=== PATIENT | male | born 1980 | race Caucasian/White ===

== ENCOUNTER 2022-03-15 14:50 | Emergency (ER) | payer MEDICAID, OTHER ==
[2022-03-15 15:28] LABS: #Basophils 0.1 thou/uL (0.0-0.2); #Eosinphils 0.2 thou/uL (0.0-0.7); #Lymphocytes 2.5 thou/uL (1.20-3.40); #Monocytes 0.5 thou/uL (0.11-0.59); #Neutrophils 4.4 thou/uL (1.40-6.50); %Basophils 1.1 % (0.0-1.0); %Eosinophils 2.6 % (0.0-10.0); %Lymphocytes 33.1 % (21.0-51.0); %Neutrophils 57.2 % (42.0-75.0); Hemoglobin 13.9 g/dL (14.0-18.0); Mean Corpuscular HGB CONC 33.2 g/dL (32.0-36.0); Mean Corpuscular Volume 87.4 fL (78.0-98.0); Platelet Count 327 thou/uL (130-400); RBC Distribution Width 12.2 % (11.5-14.5); Red Blood Cell (RBC) Count 4.78 mill/uL (4.70-6.10); White Blood Cell (WBC) Count 7.7 thou/uL (4.8-10.8)
[2022-03-15 16:05] LABS: ALT (SGPT) 28 U/L (8-55); AST (SGOT) 21 U/L (5-34); Albumin 4.6 g/dL (3.5-5.0); Alkaline Phosphatase 79 U/L (40-110); Anion Gap 13 mmol/L (10-20); BUN (Urea Nitrogen) 18 mg/dL (8.9-20.6); Bilirubin, Total 0.4 mg/dL (0.2-1.2); Calc. Creatinine Clearance 0 mL/min (70-130); Calcium 9.4 mg/dL (7.8-10.44); Carbon Dioxide 27 mmol/L (22-29); Chloride 107 mmol/L (98-107); Estimated GFR 57; Globulin 3.2 g/dL (2.4-3.5); Glucose 86 mg/dL (70-105); Lipase 52 U/L (8-78); Potassium 4.1 mmol/L (3.5-5.1); Protein, Total 7.8 g/dL (6.0-8.3); Sodium 143 mmol/L (136-145)
[2022-03-15] MEDS ORDERED: Fluorescein Opthalmic Strip ONE (17:25)
[2022-03-15] MEDS ORDERED: Proparacaine 0.5% Opth 15 ML BOT ONE (17:25)
== END 2022-03-15 18:41 | disposition home or self-care (01) ==
LOC: ERS 14:50
DX: H53.8 Other visual disturbances (principal)
CPT/HCPCS: 36415; 71045; 80053; 83690; 84484; 85025; 93005